=== PATIENT | male | born 1990 | race Caucasian/White ===

== ENCOUNTER 2016-12-28 19:26 | Emergency (ER) | payer OTHER ==
[~2016-12-28] VITALS: Ht 175.3 cm; Wt 80.3 kg
[~2016-12-28 19:26] MED LIST: 24 HOUR ALLER15.8 ML BOTH NARES; ADDERALL20 MG PO; BUSPAR15 MG PO; DESYREL100 MG PO; ELAVIL25 MG PO; FIORICET,ESG1 TABLET PO; KLONOPIN0.5 M1 PO; LATUDA40 MG PO; VYVANSE70 MG PO
[2016-12-28] MEDS ORDERED: MIRTAZAPINE15 MG PO (19:53)
[2016-12-28 20:05] LABS: HEMATOCRIT 42.4 % (38.0-50.0); MCH 30.1 PG (29.0-34.0); MCHC 35.6 G/DL (30.0-36.0); MCV 84.6 FL (86-99); MEAN PLAT.VOLUME 9.3 uM^3 (9.0-12.4); PLATELET COUNT 364 K/uL (156-360); RBC DIS.WIDTH-CV 13.5 % (11.8-14.6); RBC DIS.WIDTH-SD 41.8 % (39-53); RED BLOOD COUNT 5.01 M/uL (4.00-5.50); WHITE BLOOD COUNT 8.9 K/uL (4.1-10.2)
[2016-12-28 20:38] LABS: CHLORIDE 107 mEq/L (99-109); POTASSIUM 3.9 mEq/L (3.7-5.4); SODIUM 139 mEq/L (136-147)
[2016-12-28 20:40] LABS: GLUCOSE 113 mg/dL (70-99)
[2016-12-28 20:41] LABS: ANION GAP 13 MEQ/L (2-14)
[2016-12-28 20:41] LABS: TROP-I INTERPRETATION NEGATIVE; TROPONIN-I < 0.01 ng/mL (0.0-0.30)
[2016-12-28 20:43] LABS: SERUM ETHYL ALCOHOL < 10 mg/dL
[2016-12-28 20:44] LABS: GFR ESTIMATE (CALCULATED) > 59 mL/min/; UREA NITROGEN (BUN) 17 mg/dL (9-23)
[2016-12-28 22:31] VITALS: BP 141/98
== END 2016-12-28 22:32 | disposition home or self-care (01) ==
LOC: EME 19:26
PROVIDERS: Emergency Medicine
DX: F43.9 Reaction to severe stress, unspecified (principal); F32.9 Major depressive disorder, single episode, unspecified; F60.9 Personality disorder, unspecified; F41.0 Panic disorder [episodic paroxysmal anxiety]; R45.851 Suicidal ideations; F31.9 Bipolar disorder, unspecified; F90.9 Attention-deficit hyperactivity disorder, unspecified type; F17.200 Nicotine dependence, unspecified, uncomplicated
CPT/HCPCS: 80048; 84484; 85027; 90839; 93005; 99281; 99284; G0480

== ENCOUNTER 2016-12-31 12:23 | Inpatient (IN) | payer OTHER ==
[~2016-12-31] VITALS: Ht 172.7 cm; Wt 78.4 kg
[~2016-12-31 12:23] MED LIST changes: +MIRTAZAPINE15 MG PO
[2016-12-31 14:51] LABS: ADD MEDTOX COMMENT Y; AMPHETAMINE NEGATIVE (500 ng/mL); BARBITURATES NEGATIVE (200 ng/mL); BENZODIAZEPINES PRESUMPTIVE POSITIVE (150 ng/mL); COCAINE NEGATIVE (150 ng/mL); INTERNAL CONTROLS VALID? YES; METHADONE NEGATIVE (200 ng/mL); METHAMPHETAMINE NEGATIVE (500 ng/mL); OPIATES (MORPHINE) NEGATIVE (100 ng/mL); OXYCODONE NEGATIVE (100 ng/mL); PHENCYCLIDINE NEGATIVE (25 ng/mL); PROPOXYPHENE NEGATIVE (300 ng/mL); THC CANNABINOIDS NEGATIVE (50 ng/mL); TRICYCLIC ANTIDEPRESSANTS NEGATIVE (300 ng/mL)
[2016-12-31 15:00] LABS: HEMATOCRIT 44.1 % (38.0-50.0); MCH 30.4 PG (29.0-34.0); MCHC 35.8 G/DL (30.0-36.0); MCV 84.8 FL (86-99); MEAN PLAT.VOLUME 9.4 uM^3 (9.0-12.4); PLATELET COUNT 381 K/uL (156-360); RBC DIS.WIDTH-CV 13.2 % (11.8-14.6); RBC DIS.WIDTH-SD 40.9 % (39-53); WHITE BLOOD COUNT 9.3 K/uL (4.1-10.2)
[2016-12-31 15:09] LABS: CHLORIDE 106 mEq/L (99-109); POTASSIUM 3.9 mEq/L (3.7-5.4); SODIUM 138 mEq/L (136-147)
[2016-12-31 15:11] LABS: GLUCOSE 96 mg/dL (70-99)
[2016-12-31 15:12] LABS: ANION GAP 8 MEQ/L (2-14)
[2016-12-31 15:14] LABS: SERUM ETHYL ALCOHOL < 10 mg/dL
[2016-12-31 15:15] LABS: GFR ESTIMATE (CALCULATED) > 59 mL/min/
[2016-12-31 15:17] LABS: UREA NITROGEN (BUN) 8 mg/dL (9-23)
[2016-12-31 15:18] LABS: SALICYLATE < 5.0 MG/DL (15-30)
[2016-12-31 15:35] LABS: BENZODIAZEPINES QUANT VALUE 0 NG/ML
[2016-12-31 15:45] LABS: BENZODIAZEPINES, URINE SCREEN Negative (200 ng/mL)
[2016-12-31] MEDS ORDERED: ATIVAN0.5 MG PO (16:16)
[2016-12-31] MEDS ORDERED: VYVANSE70 MG PO (16:16)
[2016-12-31] MEDS ORDERED: LATUDA40 MG PO (16:16)
[2016-12-31 18:13] VITALS: BP 125/84
[2017-01-01 08:00] VITALS: BP 99/54
[2017-01-01 15:36] VITALS: BP 137/90
[2017-01-02 09:52] VITALS: BP 102/65
[2017-01-02 15:48] VITALS: BP 126/87
[2017-01-03 09:21] VITALS: BP 117/61
[2017-01-03] MEDS ORDERED: TRAZODONE HCL100 MG PO (10:40)
[2017-01-03] MEDS ORDERED: ABILIFY10 MG PO (10:43)
== END 2017-01-03 11:13 | disposition home or self-care (01) | DRG 885 ==
LOC: EME 12:23 → 1WEST 15:58 → EDOF 15:58 → 1WEST 17:19
PROVIDERS: Emergency Medicine
DX: F31.9 Bipolar disorder, unspecified (principal); F41.9 Anxiety disorder, unspecified; R45.851 Suicidal ideations; F13.10 Sedative, hypnotic or anxiolytic abuse, uncomplicated; F15.10 Other stimulant abuse, uncomplicated; F60.9 Personality disorder, unspecified
CPT/HCPCS: 80048; 84999; 85027; 90839; 93005; 97150 GO; 97165 GO; 99281; 99285; G0480; Q0177